=== PATIENT | female | born 1965 | race Two or more races ===

== ENCOUNTER 2023-02-12 07:26 | Emergency (ER) | payer BC ==
[~2023-02-12] VITALS: Ht 162.6 cm; Wt 74.9 kg
[2023-02-12 07:51] VITALS: BP 110/51
[2023-02-12] MEDS ORDERED: ACETAMINOPHEN 500 MG TAB PO ONE (08:15)
[2023-02-12] MEDS ORDERED: PANT40TA2 PO (09:41)
[2023-02-12] MEDS ORDERED: SUMA50TA2 PO (09:41)
== END 2023-02-12 09:50 | disposition home or self-care (01) ==
LOC: ER 07:26
DX: G44.209 Tension-type headache, unspecified, not intractable (principal); K21.9 Gastro-esophageal reflux disease without esophagitis
CPT/HCPCS: 70450

== ENCOUNTER 2023-04-29 04:15 | Emergency (ER) | payer BC ==
[~2023-04-29] VITALS: Ht 160 cm; Wt 80.0 kg
[~2023-04-29 04:15] MED LIST: PANT40TA2 PO; SUMA50TA2 PO
[2023-04-29 05:07] LABS: Urine Bacteria FEW /hpf (None Seen); Urine Blood 2+ /uL (Negative); Urine Mucus FEW (None Seen); Urine Specific Gravity 1.017 (1.001-1.035); Urine WBC 71 /hpf (0 - 5)
[2023-04-29 05:36] LABS: Basophils # (auto) 0 10 ^3/uL (0-0.2); Basophils % (auto) 0.4 % (0.0-2.0); Eosinophils # (auto) 0 10 ^3/uL (0-0.8); Eosinophils % (auto) 0.8 % (0.0-7.0); Hematocrit 39.6 % (36.0-46.0); Hemoglobin 13.7 g/dL (12.2-16.2); Lymphocytes # (auto) 0.6 10 ^3/uL (0.4-5.4); Lymphocytes % (auto) 10.1 % (10.0-50.0); Mean Corpuscular Hgb Conc. 34.7 g/dL (32.0-36.0); Mean Corpuscular Volume 92.1 fL (80.0-100.0); Monocytes # (auto) 0.4 10 ^3/uL (0-1.3); Monocytes % (auto) 7.3 % (0.0-12.0); Neutrophils # (auto) 4.7 10 ^3/uL (1.6-8.6); Neutrophils % (auto) 81.4 % (37.0-80.0); Nucleated Red Blood Cells % 0.2 %; Red Cell Distribution Width 12.7 % (11.8-14.3); White Blood Cell 5.8 10^3/uL (4.4-10.8)
[2023-04-29 05:57] LABS: Albumin 3.7 g/dL (3.4-5.0); Calcium 8.9 mg/dL (8.5-10.1); Potassium 3.9 mmol/L (3.5-5.1)
[2023-04-29 06:01] LABS: BUN/Creatinine Ratio 11.5 (10.0-20.0); Bilirubin, Total 1.1 mg/dL (0.2-1.0); Total Protein 7.3 g/dL (6.4-8.2)
[2023-04-29 06:22] VITALS: BP 147/62
[2023-04-29] MEDS ORDERED: KETOROLAC TROMETH 60MG/2ML VIAL IM ONE (06:45)
[2023-04-29] MEDS ORDERED: ACET300T58 PO (06:49)
[2023-04-29] MEDS ORDERED: IBUP-1455 PO (06:49)
[2023-04-29] MEDS ORDERED: CIPR-173 PO (06:49)
== END 2023-04-29 07:06 | disposition home or self-care (01) ==
LOC: ER 04:15
DX: N12 Tubulo-interstitial nephritis, not specified as acute or chronic (principal); K21.9 Gastro-esophageal reflux disease without esophagitis
CPT/HCPCS: 36415; 80053; 81001; 83690; 85025; 93005; 96372; 99284; J1885

== ENCOUNTER 2023-05-03 23:00 | Inpatient (IN) | payer BC ==
[~2023-05-03] VITALS: Ht 158.8 cm; Wt 78.5 kg
[~2023-05-03 23:00] MED LIST changes: +ACET300T58 PO; +CIPR-173 PO; +IBUP-1455 PO
[2023-05-03 23:44] LABS: Basophils # (auto) 0 10 ^3/uL (0-0.2); Basophils % (auto) 0.5 % (0.0-2.0); Eosinophils # (auto) 0.1 10 ^3/uL (0-0.8); Eosinophils % (auto) 0.9 % (0.0-7.0); Hematocrit 39.2 % (36.0-46.0); Hemoglobin 13.5 g/dL (12.2-16.2); Lymphocytes # (auto) 0.9 10 ^3/uL (0.4-5.4); Lymphocytes % (auto) 12.5 % (10.0-50.0); Mean Corpuscular Hemoglobin 31.5 pg (28.0-32.0); Mean Corpuscular Hgb Conc. 34.5 g/dL (32.0-36.0); Mean Corpuscular Volume 91.3 fL (80.0-100.0); Monocytes # (auto) 0.5 10 ^3/uL (0-1.3); Monocytes % (auto) 6.9 % (0.0-12.0); Neutrophils # (auto) 5.4 10 ^3/uL (1.6-8.6); Neutrophils % (auto) 79.2 % (37.0-80.0); Nucleated Red Blood Cells % 0.1 %; Red Blood Cells 4.29 10^6/uL (4.0-5.20); Red Cell Distribution Width 12.4 % (11.8-14.3); White Blood Cell 6.9 10^3/uL (4.4-10.8)
[2023-05-03 23:55] LABS: Urine Bacteria NONE SEEN /hpf (None Seen); Urine Blood Negative /uL (Negative); Urine Specific Gravity 1.017 (1.001-1.035); Urine WBC 99 /hpf (0 - 5)
[2023-05-04 00:02] LABS: Albumin 3.4 g/dL (3.4-5.0); BUN/Creatinine Ratio 14.8 (10.0-20.0); Calcium 8.6 mg/dL (8.5-10.1); Potassium 4.1 mmol/L (3.5-5.1)
[2023-05-04 00:05] LABS: Bilirubin, Total 0.3 mg/dL (0.2-1.0); Total Protein 7.1 g/dL (6.4-8.2)
[2023-05-04] MEDS ORDERED: KETOROLAC TROMETH 30 MG/ML 1ML VIAL IV ONE (06:15)
[2023-05-04] MEDS ORDERED: SODIUM CHLORIDE 0.9% 1,000 ML IV ONE (06:15)
[2023-05-04] MEDS ORDERED: MORPHINE SULFATE INJ 2 MG/ml SYRG IV PRN ×2 (10:30)
[2023-05-04] MEDS ORDERED: ONDANSETRON HCL 4 MG/2 ML VIAL IV PRN (10:30)
[2023-05-04] MEDS ORDERED: NITROGLYCERIN 0.4 MG SL TAB SL PRN (10:30)
[2023-05-04] MEDS ORDERED: TAMSULOSIN HYDROCHLORIDE 0.4 MG CAP PO ONE (10:30)
[2023-05-04] MEDS ORDERED: ACETAMINOPHEN 325 MG TAB PO PRN (10:30)
[2023-05-04] MEDS ORDERED: IOHEXOL 300 MG/ML 100ML BOTTLE IJ ONE (10:33)
[2023-05-04] MEDS: SODIUM CHLORIDE 0.9% 1,000 ML IV SCH ×2 (11:17→19:15)
[2023-05-04] MEDS: cefTRIAXone 1GM/50ML D5W 50 ML IV SCH (11:17)
[2023-05-04] MEDS: HYDROcodone-ACET 5/325MG TAB PO PRN (12:52)
[2023-05-04 14:15] LABS: INR 1.13 (0.9-1.15); Partial Thromboplastin Time 29.7 SEC (24.5-34.5)
[2023-05-04 18:12] VITALS: BP 138/68
[2023-05-04 22:00] VITALS: BP 103/70
[2023-05-05] VITALS (7 sets, daily range): BP systolic 115–144; BP diastolic 60–72
[2023-05-05] MEDS: SODIUM CHLORIDE 0.9% 1,000 ML IV SCH ×3 (02:42→18:30)
[2023-05-05 06:15] LABS: Basophils # (auto) 0 10 ^3/uL (0-0.2); Basophils % (auto) 0.4 % (0.0-2.0); Eosinophils # (auto) 0.1 10 ^3/uL (0-0.8); Eosinophils % (auto) 1.4 % (0.0-7.0); Hematocrit 34.7 % (36.0-46.0); Hemoglobin 11.8 g/dL (12.2-16.2); Lymphocytes # (auto) 0.6 10 ^3/uL (0.4-5.4); Lymphocytes % (auto) 16.1 % (10.0-50.0); Mean Corpuscular Hemoglobin 31.6 pg (28.0-32.0); Mean Corpuscular Hgb Conc. 34.2 g/dL (32.0-36.0); Mean Corpuscular Volume 92.3 fL (80.0-100.0); Monocytes # (auto) 0.3 10 ^3/uL (0-1.3); Monocytes % (auto) 8.1 % (0.0-12.0); Neutrophils # (auto) 2.9 10 ^3/uL (1.6-8.6); Red Blood Cells 3.76 10^6/uL (4.0-5.20); Red Cell Distribution Width 12.7 % (11.8-14.3); White Blood Cell 3.9 10^3/uL (4.4-10.8)
[2023-05-05 06:35] LABS: BUN/Creatinine Ratio 14.3 (10.0-20.0); Potassium 4.2 mmol/L (3.5-5.1)
[2023-05-05] MEDS: PANTOPRAZOLE 40 MG/10 ML VIAL INJ IV SCH (09:38)
[2023-05-05] MEDS: cefTRIAXone 1GM/50ML D5W 50 ML IV SCH (09:38)
[2023-05-05] MEDS: TAMSULOSIN HYDROCHLORIDE 0.4 MG CAP PO SCH (16:53)
[2023-05-05] MEDS: HYDROcodone-ACET 5/325MG TAB PO PRN (21:14)
[2023-05-06] VITALS (7 sets, daily range): BP systolic 103–162; BP diastolic 66–75
[2023-05-06] MEDS: SODIUM CHLORIDE 0.9% 1,000 ML IV SCH ×3 (02:05→15:22)
[2023-05-06] MEDS: cefTRIAXone 1GM/50ML D5W 50 ML IV SCH (09:00)
[2023-05-06] MEDS ORDERED: LIDOCAINE 2%HCL (LOCAL ANESTH.) INJ 20ML MDV ONE (09:13)
[2023-05-06] MEDS ORDERED: IOHEXOL 350 MG/ML 100ML IJ ONE (09:13)
[2023-05-06] MEDS ORDERED: fentaNYL CITRATE 100 MCG/2 ML VL ONE (09:16)
[2023-05-06] MEDS ORDERED: MIDAZOLAM HCL 2MG/2ML 2ml VIAL (1mg/ml) ONE (09:16)
[2023-05-06] MEDS ORDERED: cefTRIAXone 1GM/50ML D5W 50 ML IV ONE (09:58)
[2023-05-06] MEDS: HYDROcodone-ACET 5/325MG TAB PO PRN (12:26)
[2023-05-06] MEDS: PANTOPRAZOLE 40 MG/10 ML VIAL INJ IV SCH (12:26)
[2023-05-06] MEDS: TAMSULOSIN HYDROCHLORIDE 0.4 MG CAP PO SCH (18:40)
[2023-05-07] MEDS: SODIUM CHLORIDE 0.9% 1,000 ML IV SCH ×2 (02:03→09:09)
[2023-05-07 05:00] VITALS: BP 137/70
[2023-05-07 08:05] VITALS: BP 135/71
[2023-05-07] MEDS: PANTOPRAZOLE 40 MG/10 ML VIAL INJ IV SCH (08:57)
[2023-05-07] MEDS: cefTRIAXone 1GM/50ML D5W 50 ML IV SCH (08:57)
[2023-05-07] MEDS ORDERED: TAMS-35 PO (09:19)
[2023-05-07] MEDS ORDERED: CIPR-173 PO (09:19)
[2023-05-07] MEDS ORDERED: TRAM50TA2 PO (09:19)
[2023-05-07 09:43] VITALS: BP 135/71
[2023-05-07 14:02] VITALS: BP 125/63
[2023-05-07 14:51] VITALS: BP 125/63
== END 2023-05-07 16:29 | disposition home or self-care (01) | DRG 690 ==
LOC: ER 23:03 → OVERFLOW 05-04 10:31 → CENTRAL 05-04 17:15
PROVIDERS: ADMIT Registered Nurse; ATTEND Family Medicine
PROC: 0T9130Z Drainage of Left Kidney with Drainage Device, Percutaneous Approach (ICD-10-PCS; principal; 2023-05-06)
DX: N13.6 Pyonephrosis (principal); E66.9 Obesity, unspecified; K21.9 Gastro-esophageal reflux disease without esophagitis; N21.0 Calculus in bladder; N13.9 Obstructive and reflux uropathy, unspecified; E86.0 Dehydration
CPT/HCPCS: 36415; 71045; 74176; 74177; 74425; 76000; 76775; 76942; 80048; 80053; 81001; 85025; 85610; 85730; 86850; 86900; 86901; 87040; 87086; 99152; 99153; C1887; C9113; G0378; J0696; J2250

== ENCOUNTER 2023-05-28 22:22 | Inpatient (IN) | payer BC ==
[~2023-05-28] VITALS: Ht 160 cm; Wt 77.8 kg
[~2023-05-28 22:22] MED LIST changes: +TAMS-35 PO; +TRAM50TA2 PO
[2023-05-28 23:45] LABS: Basophils # (auto) 0 10 ^3/uL (0-0.2); Basophils % (auto) 0.3 % (0.0-2.0); Eosinophils # (auto) 0 10 ^3/uL (0-0.8); Eosinophils % (auto) 0.1 % (0.0-7.0); Hematocrit 39.1 % (36.0-46.0); Hemoglobin 13.3 g/dL (12.2-16.2); Lymphocytes # (auto) 0.2 10 ^3/uL (0.4-5.4); Lymphocytes % (auto) 4.4 % (10.0-50.0); Mean Corpuscular Hemoglobin 30.9 pg (28.0-32.0); Mean Corpuscular Volume 91.1 fL (80.0-100.0); Monocytes # (auto) 0.2 10 ^3/uL (0-1.3); Neutrophils # (auto) 4.3 10 ^3/uL (1.6-8.6); Neutrophils % (auto) 90.2 % (37.0-80.0); Red Blood Cells 4.29 10^6/uL (4.0-5.20); Red Cell Distribution Width 13.4 % (11.8-14.3); White Blood Cell 4.8 10^3/uL (4.4-10.8)
[2023-05-28 23:57] LABS: Albumin 3.4 g/dL (3.4-5.0); Calcium 8.9 mg/dL (8.5-10.1); Potassium 3.4 mmol/L (3.5-5.1)
[2023-05-29 00:01] LABS: BUN/Creatinine Ratio 16.6 (10.0-20.0); Bilirubin, Total 2.2 mg/dL (0.2-1.0); Total Protein 7.4 g/dL (6.4-8.2)
[2023-05-29 00:23] LABS: Urine Bacteria NONE SEEN /hpf (None Seen); Urine Blood 3+ /uL (Negative); Urine Mucus FEW (None Seen); Urine Specific Gravity 1.025 (1.001-1.035); Urine WBC 214 /hpf (0 - 5); Urine WBC Clumps PRESENT /hpf (None Seen)
[2023-05-29] MEDS ORDERED: ONDANSETRON ODT 4 MG TAB PO ONE (03:00)
[2023-05-29] MEDS ORDERED: HYDROmorphone HCL 2 MG/ML VL/or syr IV ONE (03:00)
[2023-05-29] MEDS ORDERED: cefTRIAXone 1GM/50ML D5W 50 ML IV ONE (03:00)
[2023-05-29] MEDS ORDERED: SODIUM CHLORIDE 0.9% 2,200 ML IV ONE (03:30)
[2023-05-29 04:23] LABS: Magnesium 2.3 mg/dL (1.6-2.6)
[2023-05-29 04:33] LABS: INR 1.09 (0.9-1.15); Partial Thromboplastin Time 30.8 SEC (24.5-34.5)
[2023-05-29] MEDS ORDERED: NITROGLYCERIN 0.4 MG SL TAB SL PRN (06:00)
[2023-05-29] MEDS ORDERED: MORPHINE SULFATE INJ 2 MG/ml SYRG IV PRN (06:00)
[2023-05-29] MEDS ORDERED: DOCUSATE SOD 100 MG CAP PO PRN (06:00)
[2023-05-29] MEDS ORDERED: ONDANSETRON HCL 4 MG/2 ML VIAL IV PRN (06:00)
[2023-05-29 07:24] LABS: Basophils # (auto) 0 10 ^3/uL (0-0.2); Basophils % (auto) 0.3 % (0.0-2.0); Eosinophils # (auto) 0 10 ^3/uL (0-0.8); Eosinophils % (auto) 0.4 % (0.0-7.0); Hemoglobin 12.2 g/dL (12.2-16.2); Lymphocytes # (auto) 0.5 10 ^3/uL (0.4-5.4); Lymphocytes % (auto) 10.3 % (10.0-50.0); Mean Corpuscular Hemoglobin 31.3 pg (28.0-32.0); Mean Corpuscular Hgb Conc. 33.8 g/dL (32.0-36.0); Mean Corpuscular Volume 92.6 fL (80.0-100.0); Monocytes # (auto) 0.5 10 ^3/uL (0-1.3); Monocytes % (auto) 9.5 % (0.0-12.0); Neutrophils # (auto) 4.1 10 ^3/uL (1.6-8.6); Neutrophils % (auto) 79.5 % (37.0-80.0); Red Blood Cells 3.89 10^6/uL (4.0-5.20); Red Cell Distribution Width 13.3 % (11.8-14.3); White Blood Cell 5.1 10^3/uL (4.4-10.8)
[2023-05-29 07:56] LABS: Calcium 8.2 mg/dL (8.5-10.1); Potassium 3.6 mmol/L (3.5-5.1)
[2023-05-29 08:03] LABS: Albumin 2.8 g/dL (3.4-5.0); BUN/Creatinine Ratio 23.3 (10.0-20.0); Bilirubin, Total 1.1 mg/dL (0.2-1.0); Total Protein 6.2 g/dL (6.4-8.2)
[2023-05-29] MEDS: ACETAMINOPHEN 325 MG TAB PO PRN ×2 (08:59→19:48)
[2023-05-29] MEDS: SODIUM CHLORIDE 0.9% 1,000 ML IV SCH (08:59)
[2023-05-29 21:00] VITALS: PULSE 67; RESP 16; O2SAT 93
[2023-05-29 23:01] VITALS: BP 111/62; PULSE 54; RESP 18; TEMP 97.9; O2SAT 96
[2023-05-30] MEDS: cefTRIAXone 1GM/50ML D5W 50 ML IV SCH ×2 (00:19→20:36)
[2023-05-30] MEDS: SODIUM CHLORIDE 0.9% 1,000 ML IV SCH ×2 (00:20→15:56)
[2023-05-30 05:00] VITALS: BP 112/56; PULSE 51; RESP 20; TEMP 97.8; O2SAT 98
[2023-05-30 09:00] VITALS: BP 113/64; PULSE 60; RESP 16; TEMP 97.8; O2SAT 94
[2023-05-30] MEDS: ACETAMINOPHEN 325 MG TAB PO PRN (11:02)
[2023-05-30 11:30] LABS: Basophils # (auto) 0 10 ^3/uL (0-0.2); Basophils % (auto) 0.4 % (0.0-2.0); Eosinophils # (auto) 0 10 ^3/uL (0-0.8); Eosinophils % (auto) 1.2 % (0.0-7.0); Hematocrit 36.1 % (36.0-46.0); Hemoglobin 12.1 g/dL (12.2-16.2); Lymphocytes # (auto) 0.3 10 ^3/uL (0.4-5.4); Lymphocytes % (auto) 10.8 % (10.0-50.0); Mean Corpuscular Hemoglobin 31.3 pg (28.0-32.0); Mean Corpuscular Hgb Conc. 33.5 g/dL (32.0-36.0); Mean Corpuscular Volume 93.6 fL (80.0-100.0); Monocytes # (auto) 0.4 10 ^3/uL (0-1.3); Monocytes % (auto) 11.8 % (0.0-12.0); Neutrophils # (auto) 2.4 10 ^3/uL (1.6-8.6); Neutrophils % (auto) 75.8 % (37.0-80.0); Nucleated Red Blood Cells % 0.1 %; Red Blood Cells 3.86 10^6/uL (4.0-5.20); Red Cell Distribution Width 13.3 % (11.8-14.3); White Blood Cell 3.1 10^3/uL (4.4-10.8)
[2023-05-30 11:34] LABS: Albumin 2.9 g/dL (3.4-5.0); Calcium 8.3 mg/dL (8.5-10.1); Potassium 3.7 mmol/L (3.5-5.1)
[2023-05-30 11:39] LABS: Bilirubin, Total 0.8 mg/dL (0.2-1.0)
[2023-05-30 13:00] VITALS: BP 126/72; PULSE 61; RESP 17; TEMP 98.7; O2SAT 98
[2023-05-30 17:24] VITALS: BP 118/75; PULSE 62; RESP 18; TEMP 98.7; O2SAT 95
[2023-05-30 20:00] VITALS: O2SAT 97
[2023-05-30 22:00] VITALS: BP 127/74; PULSE 61; RESP 22; TEMP 97.7; O2SAT 96
[2023-05-31 05:00] VITALS: BP 130/68; PULSE 63; RESP 16; TEMP 99.3; O2SAT 91
[2023-05-31 08:52] VITALS: BP 138/75; PULSE 56; RESP 17; TEMP 98.1; O2SAT 95
[2023-05-31] MEDS: SODIUM CHLORIDE 0.9% 1,000 ML IV SCH (09:33)
[2023-05-31 13:00] VITALS: BP 139/77; PULSE 63; RESP 17; TEMP 97.9; O2SAT 93
[2023-05-31 17:00] VITALS: BP 129/72; PULSE 54; RESP 17; TEMP 98; O2SAT 95
[2023-05-31 20:00] VITALS: O2SAT 97
[2023-05-31] MEDS: cefTRIAXone 1GM/50ML D5W 50 ML IV SCH (20:38)
[2023-05-31 22:00] VITALS: BP 137/71; PULSE 60; RESP 18; TEMP 98.8; O2SAT 93
[2023-06-01] VITALS (8 sets, daily range): BP systolic 132–162; BP diastolic 53–81; PULSE 52–70; RESP 17–18; TEMP 97.7–98.4; O2SAT 91–100
[2023-06-01] MEDS: SODIUM CHLORIDE 0.9% 1,000 ML IV SCH ×2 (01:16→16:14)
[2023-06-01] MEDS: PANTOPRAZOLE 40 MG TAB PO SCH (09:43)
[2023-06-01] MEDS ORDERED: diphenhdrAMINE HCL 25 MG CAP PO ONE (21:30)
[2023-06-01] MEDS: cefTRIAXone 1GM/50ML D5W 50 ML IV SCH (21:53)
[2023-06-02 04:54] VITALS: BP 138/75; PULSE 52; RESP 14; TEMP 97.7; O2SAT 100
[2023-06-02 09:00] VITALS: BP 138/72; PULSE 47; RESP 20; TEMP 98.3; O2SAT 98
[2023-06-02] MEDS: PANTOPRAZOLE 40 MG TAB PO SCH (09:14)
[2023-06-02] MEDS: SODIUM CHLORIDE 0.9% 1,000 ML IV SCH (10:00)
[2023-06-02 13:00] VITALS: BP 144/77; PULSE 50; RESP 19; TEMP 97.8; O2SAT 95
[2023-06-02 16:49] VITALS: BP 135/78; PULSE 51; RESP 19; TEMP 98; O2SAT 98
[2023-06-02 20:00] VITALS: PULSE 51; RESP 17; O2SAT 95
[2023-06-02] MEDS: cefTRIAXone 1GM/50ML D5W 50 ML IV SCH (21:23)
[2023-06-02 22:00] VITALS: BP 134/74; PULSE 51; RESP 17; TEMP 98; O2SAT 96
[2023-06-03] MEDS: SODIUM CHLORIDE 0.9% 1,000 ML IV SCH ×2 (02:40→21:16)
[2023-06-03 05:00] VITALS: BP 121/67; PULSE 51; RESP 17; TEMP 97.9; O2SAT 94
[2023-06-03] MEDS: PANTOPRAZOLE 40 MG TAB PO SCH (08:31)
[2023-06-03 09:00] VITALS: BP 147/75; PULSE 48; RESP 17; TEMP 97.9; O2SAT 97
[2023-06-03 17:00] VITALS: BP 137/74; PULSE 54; RESP 17; TEMP 97.6; O2SAT 96
[2023-06-03] MEDS: cefTRIAXone 1GM/50ML D5W 50 ML IV SCH (21:06)
[2023-06-03 22:00] VITALS: BP 147/72; PULSE 53; RESP 18; TEMP 98.2; O2SAT 92
[2023-06-04] VITALS (8 sets, daily range): BP systolic 138–156; BP diastolic 59–86; PULSE 48–89; RESP 16–18; TEMP 97.9–98; O2SAT 90–100
[2023-06-04] MEDS ORDERED: ceFAZolin 1GM/50ML 100 ML IV ONE (09:23)
[2023-06-04] MEDS ORDERED: LIDOCAINE 2% (LOCAL ANESTH.) PF 5ml SDV ONE (09:24)
[2023-06-04] MEDS ORDERED: ONDANSETRON HCL 4 MG/2 ML VIAL ONE (09:24)
[2023-06-04] MEDS ORDERED: PROPOFOL 10 MG/ML 20 ML IV ONE (09:24)
[2023-06-04] MEDS ORDERED: KETOROLAC TROMETH 30 MG/ML 1ML VIAL ONE (09:24)
[2023-06-04] MEDS ORDERED: GLYCOPYRROLATE 0.2 MG/ML 1ML VIAL ONE (09:24)
[2023-06-04] MEDS ORDERED: DexAMETHasone SOD PHOS 10MG/1ML VIAL INJ ONE (09:24)
[2023-06-04] MEDS ORDERED: IOHEXOL 300 MG/ML 100ML BOTTLE IJ ONE (09:53)
[2023-06-04] MEDS: PANTOPRAZOLE 40 MG TAB PO SCH (10:00)
[2023-06-04] MEDS ORDERED: ePHEDrine SULFATE 50 MG/ML AMP ONE (10:02)
[2023-06-04] MEDS: SODIUM CHLORIDE 0.9% 1,000 ML IV SCH (11:53)
[2023-06-04] MEDS: cefTRIAXone 1GM/50ML D5W 50 ML IV SCH ×2 (21:12→23:22)
[2023-06-05 05:00] VITALS: BP 134/68; PULSE 62; RESP 17; TEMP 97.9; O2SAT 91
[2023-06-05] MEDS: SODIUM CHLORIDE 0.9% 1,000 ML IV SCH (05:30)
[2023-06-05 08:00] VITALS: BP 147/81; PULSE 65; RESP 16; TEMP 97.6; O2SAT 97
[2023-06-05 09:00] VITALS: BP 147/81; PULSE 65; RESP 16; TEMP 97.6; O2SAT 97
[2023-06-05] MEDS: PANTOPRAZOLE 40 MG TAB PO SCH (09:34)
[2023-06-05] MEDS ORDERED: TRAM50TA2 PO (11:00)
[2023-06-05] MEDS ORDERED: TAMS-35 PO (11:00)
[2023-06-05] MEDS ORDERED: CIPR-173 PO (11:00)
[2023-06-05] MEDS ORDERED: KETAMINE 50mg/ML 10ml Vial (500mg/10ml) IV ONE (12:02)
== END 2023-06-05 12:03 | disposition home or self-care (01) | DRG 872 ==
LOC: ER 22:22 → OVERFLOW 05-29 06:15 → WEST WING 05-29 22:30
PROVIDERS: ADMIT Family Medicine; ATTEND Family Medicine
PROC: 0TF7XZZ Fragmentation in Left Ureter, External Approach (ICD-10-PCS; principal; 2023-06-04 09:28)
DX: A41.9 Sepsis, unspecified organism (principal); N13.6 Pyonephrosis; N17.9 Acute kidney failure, unspecified; K21.9 Gastro-esophageal reflux disease without esophagitis; I10 Essential (primary) hypertension; R59.0 Localized enlarged lymph nodes; E86.0 Dehydration; Z90.5 Acquired absence of kidney; Z87.442 Personal history of urinary calculi; Z86.73 Personal history of transient ischemic attack (TIA), and cerebral infarction without residual deficits; Z79.899 Other long term (current) drug therapy
CPT/HCPCS: 36415; 71045; 74176; 80053; 81001; 83605; 83690; 83735; 85025; 85610; 85730; 86850; 86900; 86901; 87040; 87081; 87086; 96365; G0378; J0690; J0696; J1100; J1885; J2001; J2405; J2704

== ENCOUNTER 2024-01-23 18:40 | Emergency (ER) | payer BC ==
[~2024-01-23] VITALS: Ht 162.6 cm; Wt 73.7 kg
[~2024-01-23 18:40] MED LIST changes: -ACET300T58 PO; -IBUP-1455 PO
[2024-01-23 20:16] LABS: Basophils # (auto) 0 10 ^3/uL (0-0.2); Basophils % (auto) 0.2 % (0.0-2.0); Eosinophils # (auto) 0 10 ^3/uL (0-0.8); Eosinophils % (auto) 0.1 % (0.0-7.0); Hematocrit 42.2 % (36.0-46.0); Hemoglobin 14.5 g/dL (12.2-16.2); Lymphocytes # (auto) 0.8 10 ^3/uL (0.4-5.4); Lymphocytes % (auto) 9.2 % (10.0-50.0); Mean Corpuscular Hemoglobin 31.7 pg (28.0-32.0); Mean Corpuscular Hgb Conc. 34.5 g/dL (32.0-36.0); Mean Corpuscular Volume 92.2 fL (80.0-100.0); Monocytes # (auto) 0.5 10 ^3/uL (0-1.3); Monocytes % (auto) 6.4 % (0.0-12.0); Neutrophils # (auto) 7.2 10 ^3/uL (1.6-8.6); Neutrophils % (auto) 84.1 % (37.0-80.0); Nucleated Red Blood Cells % 0.2 %; Red Blood Cells 4.58 10^6/uL (4.0-5.20); Red Cell Distribution Width 13.1 % (11.8-14.3); White Blood Cell 8.5 10^3/uL (4.4-10.8)
[2024-01-23 20:37] LABS: Alanine Aminotransferase 19 U/L (7-40); Albumin 4.4 g/dL (3.2-4.8); Alkaline Phosphatase 82 U/L (46-116); Anion Gap 9 (5-15); Aspartate Aminotransferase 18 U/L (13-40); BUN/Creatinine Ratio 14.7 (10.0-20.0); Bilirubin, Total 1.7 mg/dL (0.2-1.0); Blood Urea Nitrogen 11 mg/dL (9-23); Calcium 9.6 mg/dL (8.7-10.4); Carbon Dioxide 25 mmol/L (20-30); Chloride 105 mmol/L (98-107); Glucose 115 mg/dL (74-106); Lipase 26 U/L (12-53); Potassium 3.9 mmol/L (3.5-5.1); Sodium 139 mmol/L (136-145); Total Protein 6.7 g/dL (5.7-8.2)
[2024-01-23] MEDS ORDERED: FAMO20TA10 PO (22:31)
[2024-01-23] MEDS ORDERED: CEPH500C PO (22:31)
[2024-01-23] MEDS ORDERED: ZOFR4T PO (22:31)
[2024-01-23] MEDS ORDERED: HYDR-4902 PO (22:31)
[2024-01-23] MEDS ORDERED: SUCR1TAB22 OR (22:31)
[2024-01-23 22:56] LABS: Urine Bacteria FEW /hpf (None Seen); Urine Blood 2+ /uL (Negative); Urine Clarity HAZY (Clear); Urine Color Yellow (Yellow); Urine Mucus FEW (None Seen); Urine Protein, UAD 1+ (Negative); Urine Specific Gravity 1.022 (1.001-1.035); Urine Urobilinogen Normal (Negative); Urine WBC 399 /hpf (0 - 5)
[2024-01-23] MEDS: SODIUM CHLORIDE 0.9% 1,000 ML IV ONE (23:11)
[2024-01-23] MEDS ORDERED: CIPR-173 PO (23:13)
[2024-01-23 23:15] VITALS: TEMP 98.6; O2SAT 98
[2024-01-23] MEDS: cefTRIAXone 2GM/50ML D5W 50 ML IV ONE (23:15)
[2024-01-23] MEDS: PANTOPRAZOLE 40 MG/10 ML VIAL INJ IV ONE (23:22)
[2024-01-23] MEDS: ONDANSETRON HCL 4 MG/2 ML VIAL IV ONE (23:22)
[2024-01-23] MEDS: MORPHINE SULFATE 4 MG/ML SYR/VIAL IV ONE (23:23)
[2024-01-23 23:54] VITALS: BP 114/59; PULSE 58; RESP 17
== END 2024-01-24 00:05 | disposition home or self-care (01) ==
LOC: ER 18:40
DX: K29.00 Acute gastritis without bleeding (principal); R10.13 Epigastric pain; K21.9 Gastro-esophageal reflux disease without esophagitis; Z87.442 Personal history of urinary calculi; Z79.899 Other long term (current) drug therapy
CPT/HCPCS: 36415; 76705; 80053; 81001; 83690; 84484; 85025; 93005; 96361; 96374; 96375; 99285; C9113; J0696; J2270; J2405; J7030